=== PATIENT | male | born 1950 | race Caucasian/White ===

== ENCOUNTER 2018-05-07 12:25 | Inpatient (IN) ==
[2018-05-07] MEDS ORDERED: Iohexol 350 MG/ML 50 ML Vial (for Rad Diag) IVCONTRAST ONE (12:26)
[2018-05-07 13:49] LABS: INR 1.1 Ratio; Prothrombin Time 11.4 sec (9.8-11.6)
[2018-05-07 14:05] LABS: Calcium 8.6 mg/dL (8.5-10.1); Potassium 4.1 meq/L (3.5-5.1)
--- NOTE | 2018-05-07 18:30 | P.CONIM ---
History of Present Illness Primary Care Provider: Diana Goodrich MD Chief Complaint: s/p biliary drain placement History of Present Illness: patient is a 67 y/o male with history of bronchial asthma and biliary obstruction , who's being followed up by , underwent biliary drain placement earlier today. he will be observed overnight post-procedure. at the time of my evaluation he was resting comfortably with some discomfort at the site of the drain- otherwise he denies any other complaints. Review of Systems Review of Systems: all other systems reviewed are negative [facility] Medical History Medical History Asthma (Acute) Diabetes (Acute) Splenomegaly (Acute) Surgical History Surgical History History of nephrectomy, right (Acute) Hx of cholecystectomy (Acute) Family History Family History Other No pertinent family history Social History Social History Substance History: No History of Abuse Second Hand Smoke Exposure: No Smoking Status: Never smoker How Often Do You Have a Drink Containing Alcohol: Never Recent Travel in [place] within the Last 8 Weeks: No Recent Out of Country Travel within the Last 8 Weeks: No Medications and Allergies Allergies Allergy/AdvReac Type Severity Reaction Status Date / Time clarithromycin [From Biaxin] Allergy Severe Chest Pain Verified 05/07/18 13:19 Home Medications Medication Instructions Recorded Confirmed Type Diuretics 05/07/18 History albuterol sulfate [ProAir HFA] 1 puff INHALATION Q4-6H PRN 05/07/18 05/07/18 History fluticasone-salmeterol [Advair 1 puff INHALATION BID 05/07/18 05/07/18 History Diskus] Active Medications: Active Medications Miscellaneous Information (Misc Nursing Information) 0 each OTHER UNSCH PRN PRN Reason: SEE LABEL COMMENTS Stop: 05/08/18 15:59 Physical Exam Vital signs: Vital Signs 05/07/18 13:00 Temperature 98.9 F Pulse Rate 87 Respiratory Rate 16 Blood Pressure 136/79 Pulse Oximetry 96 Intake & Output 05/06/18 05/07/18 05/07/18 18:59 06:59 18:59 Output Total 1500 / 1500 Balance -1500 / -1500 Weight 90.718 kg Output: Wound Drainage 1500 / 1500 Right Abdomen 1500 / 1500 Other: Weight On Admission 90.718 kg Constitutional no acute distress Routine HEENT Exam Eye: Present PERRL Routine Neck Exam Present supple Routine Respiratory Exam Present CTA bilaterally Routine Cardiovascular Exam Present RRR Routine Abdominal Exam Present soft Comments: drain in place- RUQ Routine Extremities Exam Comments: no pedal edema. Routine Neurological Exam Present alert and oriented X3 Results Labs CBC & Chem 7: 05/07/18 13:25 Assessment and Plan Plan A/P - biliary obstruction/ ascites- s/p biliary drain placement and removal of about 2.5 liters of fluid will observe over night- IR following. plan for f/u with the surgery for the biopsy as outpatient. -bronchial asthma - with no exacerbation neb treatment as needed. Discussed Condition With: , RN and the patient and his family. Discharge Planning: likely tomorrow- if stable.
[2018-05-07] MEDS ORDERED: Acetaminophen 325 MG Tablet PO PRN (22:13)
[2018-05-08] MEDS ORDERED: Budesonide-Formoterol 80/4.5 MCG 6.9 GM Inhaler INH SCH (09:00)
--- NOTE | 2018-05-08 09:49 | P.PNIM ---
Subjective Interval history: f/u; s/p biliary drain placement in no acute distress. has mild abdominal discomfort-otherwise no other complaints. Physical Exam Vital signs: Vital Signs 05/07/18 13:00 05/07/18 19:26 05/07/18 23:26 Temperature 98.9 F 98.1 F 98.3 F Pulse Rate 87 77 81 Respiratory Rate 16 18 18 Blood Pressure 136/79 116/65 114/66 Pulse Oximetry 96 97 97 05/08/18 04:45 05/08/18 08:00 Temperature 98.2 F 97.6 F Pulse Rate 68 74 Respiratory Rate 18 18 Blood Pressure 112/70 111/66 Pulse Oximetry 96 96 Intake & Output 05/07/18 05/08/18 05/08/18 18:59 06:59 18:59 Intake Total 480 / 480 Output Total 1500 / 1500 1550 / 1550 Balance -1500 / -1500 -1070 / -1070 Weight 90.718 kg 89.7 kg Intake: Oral 480 / 480 Output: Urine 300 / 300 Wound Drainage 1500 / 1500 1250 / 1250 Right Abdomen 1500 / 1500 1250 / 1250 Other: # Voids 1 # Bowel Movements 0 Weight On Admission 90.718 kg Constitutional no acute distress Routine Respiratory Exam Present CTA bilaterally Routine Cardiovascular Exam Present RRR Routine Abdominal Exam Present soft Comments: drain in place; RUQ. Routine Extremities Exam Comments: no pedal edema. Routine Neurological Exam Present alert and oriented X3 Results Labs CBC & Chem 7: 05/07/18 13:25 Assessment and Plan Plan A/P - biliary obstruction/ ascites- s/p biliary drain placement and removal of about 2.5 liters of fluid IR following. plan for f/u with the surgery for the biopsy as outpatient. -bronchial asthma - with no exacerbation Discharge Planning: dc home today after seen and cleared by IR. see med list. d/w the patient and RN. f/u; pcp and surgery. Progress Note: Quality VTE Deep Vein Thrombosis/Pulmonary Embolism Present on Admission: No
[2018-05-08 12:54] VITALS: PULSE 69; RESP 16; TEMP 98.1; O2SAT 95
[2018-05-08 13:03] VITALS: BP 118/68
--- NOTE | 2018-05-09 12:50 | IR ---
EXAM DATE: 05/07/2018 4:20 PM EST AGE/SEX: 67 years / Male INDICATIONS: Patient with history of Hepatosplenomegaly in need of biliary drain placement. CLINICAL DATA: This is the patient's initial encounter. Patient reports that signs and symptoms have been present for 1 week and indicates a pain score of 0/10. MEDICAL/SURGICAL HISTORY: . Hepatosplenomegaly, Asthma, Diabetes . Cholecystectomy, Donated Ri ght kidney. COMPARISON: No prior exams available for comparison. FLUORO TIME (min): 16.3 IMAGE SERIES: 3 RADIATION DOSE: 844.8 mGy CAK CONTRAST (cc): 35 Omnipaque (iohexol) 350 Prophylactic antibiotics were administered with appropriate pre-procedure timing. Vancomycin within 2 hrs of procedure, Ancef (or alternative) within 1 hr of procedure. Anesthesia and pain control was p rovided by the Anesthesia department. DEVICE(S): 10 Japanese Flexima catheter Biliary drain. . . PROCEDURE: 1. Ultrasound guided puncture of the biliary tree. 2. Percutaneous antegrade cholangiogram. 3. Biliary stent placement. 4. Conscious sedation with continuous EKG and oximetry monitoring. The risks, benefits and alternatives to the procedure were explained and verbal and written consent w as obtained. The site was prepped in sterile fashion. Full sterile technique was used, including ca p, mask, sterile gloves and gown and a large sterile sheet. Hand hygiene and 2% chlorhexidine and/or betadine/alcohol prep was utilized per protocol for cutaneous antisepsis. Sterile gel and sterile p robe cover were utilized for ultrasound guidance. The skin and subcutaneous tissues were infiltrated with local anesthetic solution. With ultrasound and fluoroscopic guidance the biliary tree was punctured with a 22 gauge Chiba needle and the biliary tree was opacified. A 0.018 wire was advanced through the needle and down to the amp pravin. This was exchanged for a 3/4 dilator. A 0.035 wire was advanced into the central biliary tree. A Berenstein catheter was advanced over the wire. This combination was advanced down to the level the ampulla. A small injection of contrast was placed into the distal common bile duct. The cholangiogram demonstrated a polypoid filling defect with complete occlusion of the ampulla sugge stive of an ampullary mass. The 0.035 angle Glidewire and Berenstein catheter were manipulated across the occlusion. A 10 Japanese internal/external drain was advanced over the wire. The procedure was performed under general anesthesia. The patient tolerated the procedure well and th ere were no complications. The patient was sent to post anesthesia recovery in stable condition. CONCLUSION: 1. Uncomplicated biliary stent placement as above. 2. There is complete occlusion of the common bile duct at the level the ampulla and an ampullary mas s. This is concerning for malignancy. Electronically signed by: Jeffrey Owens MD Board Certified Radiologist 05/09/2018 12:49 PM EST
--- NOTE | 2018-05-09 12:50 | IR ---
EXAM DATE: 05/07/2018 4:20 PM EST AGE/SEX: 67 years / Male INDICATIONS: Patient with history of Hepatosplenomegaly presents with right abdominal ascites in nee d of paracentesis. CLINICAL DATA: This is the patient's initial encounter. Patient reports that signs and symptoms have been present for 1 day and indicates a pain score of 0/10. MEDICAL/SURGICAL HISTORY: . Hepatosplenomegaly, Diabetes, Asthma . Cholecystectomy, Donated ri ght kidney. COMPARISON: No prior exams available for comparison. ACCESS SITE: DEVICE(S): 6 Fr [id number] FLUID: Total volume of 1500 of clear, yellow fluid was removed. . PROCEDURE : 1. Ultrasound guidance for abdominal paracentesis. 2. Paracentesis. The risks, benefits, and alternatives to paracentesis were explained to the patient in detail, lay te neymar including the risk of bleeding and infection. Oral and written informed consent was obtained. The site was prepped in sterile fashion. Full sterile technique was used, including cap, mask, steri le gloves and gown and a large sterile sheet. Hand hygiene and 2% chlorhexidine and/or betadine/alco hol prep was utilized per protocol for cutaneous antisepsis. Sterile gel and sterile probe cover wer e utilized for ultrasound guidance. The skin and subcutaneous tissues were infiltrated with local an esthetic solution. Ultrasound was used to select approach for paracentesis. The skin and subcutaneous tissues were infi ltrated with Lidocaine solution. The prescribed catheter was introduced into the peritoneal cavity a nd the above described fluid was removed without difficulty. Post procedure scanning reveals no evid ence of hematoma or other complication. The patient tolerated the procedure well and left the angio suite in good condition. CONCLUSION: 1. Uncomplicated ultrasound guided paracentesis. Electronically signed by: Jeffrey Owens MD Board Certified Radiologist 05/09/2018 12:49 PM EST
== END 2018-05-08 16:23 | disposition home or self-care (01) | DRG 445 ==
LOC: HRAD 12:25 → HRIP 12:38 → N06 16:20 → EDSDCBED 16:21 → N06 19:05 → HRAD 05-08 13:55 → N06 05-09 12:37
PROVIDERS: ADMIT Surgery; ATTEND Surgery
CPT/HCPCS: 47540; 80048; 85610; 85730; A4646; C1729; C1765; C1769; C1887; Q9950; Q9965; Q9967